=== PATIENT | female | born 1990 | race Hispanic/Latino ===

== ENCOUNTER 2020-05-25 23:33 | Emergency (ER) | payer BC ==
[2020-05-25] MEDS ORDERED: LIDOCAINE 5% TOPICAL PATCH TP ONE (23:57)
[2020-05-25] MEDS ORDERED: KETOROLAC TROMETHAMINE 60 MG/2 ML VIAL ONE (23:57)
[2020-05-25] MEDS ORDERED: ORPHENADRINE CITRATE 30 MG/ML ML ONE (23:57)
== END 2020-05-26 01:45 | disposition home or self-care (01) ==
LOC: EDH 23:33
DX: R51.9 Headache, unspecified (principal); M62.830 Muscle spasm of back
CPT/HCPCS: 70450; 96372 ×2; 99284; J1885; J2360

== ENCOUNTER 2022-09-05 19:18 | Emergency (ER) | payer BC ==
[~2022-09-05] VITALS: Ht 165.1 cm; Wt 69.4 kg
[2022-09-05 21:57] LABS: BASOPHILS % (AUTO) 0.1 % (0.0-5.0); EOSINOPHILS % (AUTO) 1.1 % (0.0-8.0); HEMATOCRIT 34.2 % (36-48); LYMPHOCYTES % (AUTO) 27.4 % (21.0-51.0); MEAN CORPUSCULAR HEMOGLOBIN 28.2 pg (27.0-33.0); MEAN CORPUSCULAR VOLUME 85.3 fL (79-99); MONOCYTES % (AUTO) 7.2 % (3.0-13.0); NEUTROPHILS % (AUTO) 63.8 % (40.0-77.0); PLATELET COUNT (AUTO) 271 K/uL (130-400); RED BLOOD CELL COUNT(AUTO) 4.01 MIL/uL (4.00-5.50); RED CELL DISTRIBUTION WIDTH 15.2 % (11.0-15.5); WHITE BLOOD COUNT (AUTO) 8.3 K/uL (4.8-10.8)
[2022-09-05 22:11] LABS: CREATININE 0.6 mg/dL (0.5-1.5); POTASSIUM 3.4 mmol/L (3.5-5.1)
[2022-09-05 22:47] LABS: ALBUMIN 2.9 g/dL (3.5-5.0); TOTAL PROTEIN, SERUM 6.9 g/dL (6.0-8.3)
[2022-09-05 22:50] LABS: APPEARANCE,URINE CLEAR (CLEAR); BILIRUBIN,URINE NEGATIVE (NEGATIVE); COLOR,URINE COLORLESS (YELLOW); GLUCOSE, URINE (UA) NEGATIVE (NEGATIVE); KETONES,URINE NEGATIVE (NEGATIVE); LEUKOCYTE ESTERASE ,URINE 25 Leu/uL (NEGATIVE); NITRATE,URINE NEGATIVE (NEGATIVE); OCCULT BLOOD,URINE NEGATIVE (NEGATIVE); PH,URINE 6.5 (5.0-8.0); PROTEIN,URINE NEGATIVE (NEGATIVE); UROBILINOGEN,URINE 0.2 mg/dL (0.2-1.0)
[2022-09-05] MEDS ORDERED: POTASSIUM BICARB/CIT AC 25 MEQ TABLET.EFF PO ONE (23:00)
[2022-09-05 23:10] LABS: BACTERIA,URINE RARE /HPF (None Seen); SQUAMOUS EPITHELIAL CELL,UR RARE /HPF (0-2)
[2022-09-05] MEDS ORDERED: AMOX1TAB16 PO (23:21)
[2022-09-06 00:12] VITALS: BP 97/64
== END 2022-09-06 00:14 | disposition home or self-care (01) ==
LOC: EDH 19:18
DX: O23.42 Unspecified infection of urinary tract in pregnancy, second trimester (principal); N39.0 Urinary tract infection, site not specified; Z3A.18 18 weeks gestation of pregnancy
CPT/HCPCS: 36415; 76805; 80053; 81001; 83690; 84702; 85025; 86900; 86901

== ENCOUNTER 2023-01-26 11:46 | Emergency (ER) | payer BC ==
[~2023-01-26] VITALS: Ht 165.1 cm; Wt 79.4 kg
[~2023-01-26 11:46] MED LIST: IBUP-2077 PO
[2023-01-26 13:44] LABS: BASOPHILS % (AUTO) 0.1 % (0.0-5.0); EOSINOPHILS % (AUTO) 1.9 % (0.0-8.0); HEMATOCRIT 35.1 % (36-48); LYMPHOCYTES % (AUTO) 19.4 % (21.0-51.0); MEAN CORPUSCULAR HEMOGLOBIN 26.7 pg (27.0-33.0); MEAN CORPUSCULAR HGB CONC 31.1 g/dL (32.0-36.0); MEAN CORPUSCULAR VOLUME 85.8 fL (79-99); MONOCYTES % (AUTO) 6.6 % (3.0-13.0); NEUTROPHILS % (AUTO) 71.7 % (40.0-77.0); PLATELET COUNT (AUTO) 275 K/uL (130-400); RED BLOOD CELL COUNT(AUTO) 4.09 MIL/uL (4.00-5.50); RED CELL DISTRIBUTION WIDTH 15.7 % (11.0-15.5); WHITE BLOOD COUNT (AUTO) 7.8 K/uL (4.8-10.8)
[2023-01-26 13:52] LABS: CREATININE 0.5 mg/dL (0.5-1.5); POTASSIUM 3.5 mmol/L (3.5-5.1)
[2023-01-26 13:56] LABS: ALBUMIN 2.4 g/dL (3.5-5.0); MAGNESIUM 1.9 mg/dL (1.80-2.40); TOTAL PROTEIN, SERUM 6.6 g/dL (6.0-8.3)
[2023-01-26 13:56] LABS: APPEARANCE,URINE CLEAR (CLEAR); BILIRUBIN,URINE NEGATIVE (NEGATIVE); COLOR,URINE COLORLESS (YELLOW); GLUCOSE, URINE (UA) NEGATIVE (NEGATIVE); KETONES,URINE NEGATIVE (NEGATIVE); LEUKOCYTE ESTERASE ,URINE 250 Leu/uL (NEGATIVE); NITRATE,URINE NEGATIVE (NEGATIVE); OCCULT BLOOD,URINE MODERATE (NEGATIVE); PH,URINE 6.5 (5.0-8.0); PROTEIN,URINE NEGATIVE (NEGATIVE); UROBILINOGEN,URINE 0.2 mg/dL (0.2-1.0)
[2023-01-26 14:15] LABS: BACTERIA,URINE RARE /HPF (None Seen); MUCUS,URINE RARE LPF (None Seen); SQUAMOUS EPITHELIAL CELL,UR RARE /HPF (0-2); TRANSITIONAL EPI CELLS,URINE RARE /HPF (None Seen)
[2023-01-26 14:16] LABS: B-TYPE NATRIURETIC PEPTIDE 42 pg/mL (0-100)
[2023-01-26] MEDS ORDERED: MORPHINE 4 MG SYG IVP ONE (17:00)
[2023-01-26] MEDS ORDERED: CEFTRIAXONE 1G VIAL IVPB ONE (17:00)
[2023-01-26] MEDS ORDERED: KETOROLAC 30MG VIAL (30MG/ML) IVP ONE (17:00)
[2023-01-26] MEDS ORDERED: MACR100 PO (18:41)
[2023-01-26] MEDS ORDERED: IBUP-2070 PO (18:41)
[2023-01-26 19:02] VITALS: BP 107/70; PULSE 64; RESP 17; O2SAT 97
== END 2023-01-26 19:03 | disposition home or self-care (01) ==
LOC: EDH 11:46
DX: O86.20 Urinary tract infection following delivery, unspecified (principal); N39.0 Urinary tract infection, site not specified; O92.79 Other disorders of lactation; R60.9 Edema, unspecified; Z20.822 Contact with and (suspected) exposure to COVID-19; Z79.899 Other long term (current) drug therapy
CPT/HCPCS: 99284; 93970; 96365; 96375; 87635; 83735; 80053; 83880; 85025; 87088; 87804 ×2; 83605; 81001; 36415; C9803; J0696; J2270; J1885

== ENCOUNTER 2024-11-05 20:19 | Emergency (ER) | payer BC ==
[~2024-11-05] VITALS: Ht 165.1 cm; Wt 68.5 kg
[~2024-11-05 20:19] MED LIST changes: +IBUP-2070 PO; +MACR100 PO
[2024-11-05 21:30] LABS: BASOPHILS # (AUTO) 0.02 K/uL (0.00-0.20); BASOPHILS % (AUTO) 0.2 % (0.0-5.0); EOSINOPHILS # (AUTO) 0.14 K/uL (0.00-0.70); EOSINOPHILS % (AUTO) 1.6 % (0.0-8.0); HEMATOCRIT 36.2 % (36-48); IMMATURE GRANULOCYTE ABSOLUTE 0.01 K/uL (0-1); LYMPHOCYTES # (AUTO) 2.9 K/uL (1.0-4.8); LYMPHOCYTES % (AUTO) 33.9 % (21.0-51.0); MEAN CORPUSCULAR HEMOGLOBIN 25.3 pg (27.0-33.0); MEAN CORPUSCULAR HGB CONC 30.7 g/dL (32.0-36.0); MEAN CORPUSCULAR VOLUME 82.6 fL (79-99); MONOCYTES # (AUTO) 0.6 K/uL (0.1-1.0); MONOCYTES % (AUTO) 6.8 % (3.0-13.0); NEUTROPHILS # (AUTO) 4.9 K/uL (1.8-7.7); NEUTROPHILS % (AUTO) 57.4 % (40.0-77.0); PLATELET COUNT (AUTO) 294 K/uL (130-400); RED BLOOD CELL COUNT(AUTO) 4.38 MIL/uL (4.00-5.50); RED CELL DISTRIBUTION WIDTH 18.6 % (11.0-15.5); WHITE BLOOD COUNT (AUTO) 8.6 K/uL (4.8-10.8)
--- NOTE | 2024-11-05 21:41 | ERN ---
General Chief Complaint: Sore Throat Stated Complaint: SENT BY PHYSICIAN Time Seen by MD: 20:20 Time Seen by Midlevel: 20:20 Source: patient History of Present Illness Initial Comments 34-year-old female who presents to the emergency department referred from day and night clinic due to chest pain onset four days. She reports sore throat, SOB but denies any fever, cough, congestion, abdominal pain or further associated symptoms. Patient denies significant past medical history. Allergies: Coded Allergies: No Known Drug Allergies (Unverified Allergy, Unknown, 09/05/22) Home Meds Active Scripts Ibuprofen (Ibuprofen) 600 Mg Tablet, 600 MG PO Q6H PRN for PAIN, #40 TAB 0 Refills Prov:SARITHA KIMBLE MD 01/26/23 Nitrofurantoin/Nitrofuran Mac (Macrobid) 100 Mg Cap, 1 CAP PO BID for 7 Days, #14 CAP 0 Refills Prov:SARITHA KIMBLE MD 01/26/23 Reported Medications Ibuprofen (Ibuprofen 800 mg Tab) 800 Mg Tab, 800 MG PO Q8H, TAB 01/23/23 Past Medical History Past Medical History: Unknown Past Surgical History: Unknown Social History Social History: Negative, Lives with family Female( History) : 4 Para: 3 Aborts: 1 ROS Dictation Constitutional: Negative for fever,chills, and weight loss Eyes: Negative for injury, pain,redness, and discharge ENT: Positive for sore throat Negative for injury,pain or swelling Cardiovascular: Positive for chest pain Negative for palpitations, and edema Respiratory: Positive for SOB Negative for cough, and wheezing, Abdomen/GI: Negative for abdominal pain, nausea, vomiting, diarrhea, and constipation Back: Negative for injury and pain : Negative for painful urination, bleeding or discharge MS/Extremity: Negative for injury and deformity Skin: Negative for rash, and discoloration Neuro: Negative for headache, weakness, numbness, tingling, and seizure Psych: Negative for suicide ideation, homicidal ideation, and hallucinations Physical Exam Physical Exam Dictation General: awake, alert, no acute distress Head/Face: Normocephalic, atraumatic Eyes: PERRL, EOMI, normal conjunctiva ENT: oral cavity clear, oral mucosa moist Neck: Supple, normal range of motion Cardiovascular: RRR, normal S1/S2 Respiratory: CTAB, no respiratory distress, no rales or wheezes Abdomen: Soft, non-tender, non-distended, no guarding or rebound. Skin: Warm, dry, normal turgor, no rash MS/Extremity: Pulses equal, no cyanosis, neurovascular intact, FROM Neuro: COAx4, GCS 15, strength 5/5, CN 2-12 intact, normal cerebellar exam, normal gait Psych: Normal behavior, mood, and affect normal Results Laboratory and Microbiology Lab and Micro Result Laboratory Tests Test 11/05/24 21:19 11/05/24 22:35 White Blood Count 8.6 K/uL (4.8-10.8) Red Blood Count 4.38 MIL/uL (4.00-5.50) Hemoglobin 11.1 g/dL (12.0-16.0) L Hematocrit 36.2 % (36-48) Mean Corpuscular Volume 82.6 fL (79-99) Mean Corpuscular Hemoglobin 25.3 pg (27.0-33.0) L Mean Corpuscular Hemoglobin Concent 30.7 g/dL (32.0-36.0) L Red Cell Distribution Width 18.6 % (11.0-15.5) H Platelet Count 294 K/uL (130-400) Mean Platelet Volume 10.2 fL (7.5-10.5) Immature Granulocyte % (Auto) 0.1 % (0-1) Neutrophils (%) (Auto) 57.4 % (40.0-77.0) Lymphocytes (%) (Auto) 33.9 % (21.0-51.0) Monocytes (%) (Auto) 6.8 % (3.0-13.0) Eosinophils (%) (Auto) 1.6 % (0.0-8.0) Basophils (%) (Auto) 0.2 % (0.0-5.0) Neutrophils # (Auto) 4.9 K/uL (1.8-7.7) Lymphocytes # (Auto) 2.9 K/uL (1.0-4.8) Monocytes # (Auto) 0.6 K/uL (0.1-1.0) Eosinophils # (Auto) 0.14 K/uL (0.00-0.70) Basophils # (Auto) 0.02 K/uL (0.00-0.20) Absolute Immature Granulocyte (auto 0.01 K/uL (0-1) Nucleated Red Blood Cells 0.0 % (0.0-0.19) Red Blood Cell Morphology See comments Sodium Level 140 mmol/L (136-145) Potassium Level 3.5 mmol/L (3.5-5.1) Chloride Level 103 mmol/L (101-111) Carbon Dioxide Level 29 mmol/L (21-32) Blood Urea Nitrogen 13 mg/dL (7-18) Creatinine 0.7 mg/dL (0.5-1.0) Glomerular Filtration Rate Calc 115 mL/min (>90) Random Glucose 120 mg/dL (70-105) H Total Calcium 8.6 mg/dL (8.5-10.1) Troponin I High Sensitivity < 4 ng/L (4-50) L Urine Color LIGHT-YELLOW (YELLOW) Urine Appearance CLEAR (CLEAR) Urine pH 5.5 (5.0-8.0) Urine Specific [place] 1.015 (1.001-1.031) Urine Protein NEGATIVE mg/dL (NEGATIVE) Urine Glucose (UA) NEGATIVE mg/dL (NEGATIVE) Urine Ketones NEGATIVE mg/dL (NEGATIVE) Urine Occult Blood +- (TRACE) (NEGATIVE) H Urine Nitrate NEGATIVE (NEGATIVE) Urine Bilirubin NEGATIVE mg/dL (NEGATIVE) Urine Urobilinogen 0.2 mg/dL (0.2-1.0) Urine Leukocyte Esterase 500 Pablo/uL (NEGATIVE) H Urine RBC 2-5 /HPF (0-1) H Urine WBC 6-10 /HPF (0-1) H Urine Squamous Epithelial Cells MANY /HPF (0-2) Urine Bacteria None /HPF (None Seen) Urine HCG, Qualitative NEGATIVE (NEGATIVE) MDM Patient's cardiac workup is negative. Patient was improved after receiving Rocephin. Patient was received a1 L of fluid as well as acetaminophen/ibuprofen and feeling better. Patient has agreed to take her Augmentin that was previously prescribed for sinusitis for her UTI MDM: Differential diagnosis: UTI/weakness/chest pain Rationale: Tests considered and ordered secondary to shared decision making include: Previous outside records reviewed: Old ER visits. Risk of complication and/or morbidity or mortality of patient management: None Medications-Per medication reconciliation Need for hospitalization: Patient does not meet criteria for hospitalization. Need for emergency major/minor surgery: No There are no social concerns with this patient. Prescription drug management Prescriptions will include symptomatic care Patient's prior external medical records from other ER visits were reviewed by me as indicated. Prior testing and results from previous visits were reviewed. Prior tests were taken into account with medical decision making and resource utilization, independent historian/historians were used to obtain complete medical history. I independently interpreted the test that were performed, results were reviewed by me and considered findings on radiology if ordered. Medical management and examination interpretation discussions were had by me with other qualified healthcare professionals as indicated for the patient's care. ED Course Orders Procedure Category Date Status Time 12 Lead Ekg Tracing- EKG 11/05/24 Logged Technical 21:06 Cbc With Differential LAB 11/05/24 Complete 21:11 Basic Metabolic Panel LAB 11/05/24 Complete 21:11 Urinalysis LAB 11/05/24 Complete W/Microscopic 21:11 ,Urine Test LAB 11/05/24 Complete 21:11 Troponin I High LAB 11/05/24 Complete Sensitivity 21:11 12 Lead Ekg Tracing- EKG 11/05/24 Logged Technical 21:11 Chest 1vw RAD 11/05/24 Resulted 21:11 Culture Urine PEBBLES 11/05/24 In Process 23:11 Sulfamethox-Tmp Ds PHA 11/06/24 Complete 800/160 Tab (Bactrim 09:00 Acetaminophen 325 Tab PHA 11/06/24 Complete (Tylenol 325mg Tab 00:00 Ibuprofen 600 Mg PHA 11/06/24 Complete Tablet (Motrin) 00:00 0.9%Nacl 1000ml (Ns PHA 11/06/24 In Process 1000ml) 00:00 Ceftriaxone 1g Vial PHA 11/06/24 Complete (Rocephine 1g Inj) 00:30 Troponin I High LAB 11/06/24 In Process Sensitivity 01:04 Current Medications Medications (Trade) Dose Ordered Sig/Remedios Route PRN Reason Start Time Stop Time Status Last Admin Dose Admin Acetaminophen (TYLenol 325MG TAB) 650 mg ONCE ONCE PO 11/06/24 00:00 11/06/24 00:01 DC 11/06/24 00:11 Ceftriaxone Sodium (ROCEphine 1G INJ) 1 gm ONCE ONCE IVPB 11/06/24 00:30 11/06/24 00:31 DC 11/06/24 00:24 Ibuprofen (moTRIN) 600 mg ONCE ONCE PO 11/06/24 00:00 11/06/24 00:01 DC 11/06/24 00:12 Sodium Chloride 1,140 ml @ 380 mls/hr ONCE ONCE IV 11/06/24 00:00 11/06/24 02:59 11/06/24 00:12 Trimethoprim/ Sulfamethoxazole (BactRIM DS) 1 tab BID PO 11/06/24 09:00 11/06/24 00:05 DC Vital Signs Date Time Temp Pulse Resp B/P (MAP) Pulse Ox O2 Delivery O2 Flow Rate FiO2 11/06/24 00:45 60 18 126/80 100 Room Air* 0 21 11/05/24 23:00 98.4 67 19 128/86 100 Room Air* 0 21 11/05/24 21:34 98.6 67 20 133/67 99 Room Air* 0 21 11/05/24 20:56 67 20 133/67 100 Room Air DX & DISP Disposition: Discharge Departure Impression: Primary Impression: Non-cardiac chest pain Condition: Stable Additional Instructions: Please follow up with your primary care physician for further evaluation and care. He did have a workup and was negative for any cardiac etiologies of chest pain. Chest x-ray was done was unremarkable per the radiologist. Continue to take ibuprofen and Tylenol as needed in alternating fashion for your pain. If your pain comes worsens or does not improve with conservative treatment please come back to the emergency department. Please take the Augmentin you were given for your sinusitis to treat UTI. Referrals: ANUPAMA RIVER MD (PCP) JAVED WINTERS Nov 05, 2024 21:41 KEVIN BERUMEN MD November 06, 2024 01:58
[2024-11-05 21:46] LABS: CREATININE 0.7 mg/dL (0.5-1.0); POTASSIUM 3.5 mmol/L (3.5-5.1)
--- NOTE | 2024-11-05 22:56 | NUR ---
PT CARE ASSUMED AT THIS TIME
[2024-11-05 23:05] LABS: HCG,QUALITATIVE URINE NEGATIVE (NEGATIVE)
[2024-11-05 23:07] LABS: APPEARANCE,URINE CLEAR (CLEAR); BILIRUBIN,URINE NEGATIVE (NEGATIVE); COLOR,URINE LIGHT-YELLOW (YELLOW); GLUCOSE, URINE (UA) NEGATIVE (NEGATIVE); KETONES,URINE NEGATIVE (NEGATIVE); LEUKOCYTE ESTERASE ,URINE 500 Leu/uL (NEGATIVE); MUCUS,URINE RARE LPF (None Seen); NITRATE,URINE NEGATIVE (NEGATIVE); PH,URINE 5.5 (5.0-8.0); PROTEIN,URINE NEGATIVE (NEGATIVE); SQUAMOUS EPITHELIAL CELL,UR MANY /HPF (0-2); UROBILINOGEN,URINE 0.2 mg/dL (0.2-1.0)
[2024-11-06] MEDS: acetaMINOPHEN 325 MG TAB PO ONE (00:11)
[2024-11-06] MEDS: ibuPROFEN 600 MG TABLET PO ONE (00:12)
[2024-11-06] MEDS: 0.9%NACL 1000ML 1,140 ML IV ONE (00:12)
--- NOTE | 2024-11-06 00:12 | NUR ---
IV FLUIDS IS TO BE BOLUSED PER ED MD
--- NOTE | 2024-11-06 00:22 | HMCIMG ---
CHEST 1VW HISTORY: Chest pain COMPARISON: None FINDINGS: A frontal projection of the chest was obtained. No acute pulmonary infiltrates is seen. The heart is normal in size. Prominent interstitial markings are seen. No evidence of aortic calcification is seen. IMPRESSION: 1. No acute pulmonary infiltrate is seen.
[2024-11-06] MEDS: cefTRIAXone 1G VIAL IVPB ONE (00:24)
[2024-11-06 02:09] VITALS: BP 130/75; PULSE 65; RESP 17; TEMP 98.1; O2SAT 100
--- NOTE | 2024-11-06 08:41 | EKG ---
[facility] Test Date: 2024-11-05 Test Time: 21:00:46 Pat Name: ALIS KEY Department: [facility] Room: Gender: F [employer]visor: [id number] : 1990 Requested By: KEVIN BERUMEN Order Number: [id number] Reading MD: Faith Obrien Measurements Intervals [place] Rate: 63 P: 39 GA: 150 QRS: 47 QRSD: 117 T: 27 QT: 410 QTc: 421 Interpretive Statements Sinus rhythm Probable left atrial enlargement Incomplete right bundle branch block No previous ECG available for comparison Electronically Signed On 11-06-2024 13:24:19 CDT by Faith Obrien Please click the below link to view image of tracing.
[2024-11-06] MEDS ORDERED: sulfaMETHOX-TMP DS 800/160 TAB PO SCH (09:00)
== END 2024-11-06 02:13 | disposition home or self-care (01) ==
LOC: EDH 20:19
DX: R07.89 Other chest pain (principal); Z79.899 Other long term (current) drug therapy
CPT/HCPCS: 99284; 71045; 84484 ×2; 80048; 85025; 87086; 81001; 81025; 36415; 93005; 96365; J7030; J0696